=== PATIENT | male | born 1975 | race Caucasian/White ===

== ENCOUNTER 2021-10-31 22:04 | Emergency (ER) | payer OTHER ==
[~2021-10-31] VITALS: Ht 177.8 cm; Wt 91.2 kg
== END 2021-11-01 00:40 | disposition home or self-care (01) ==
LOC: ER 22:04
DX: S61.216A Laceration without foreign body of right little finger without damage to nail, initial encounter (principal); W26.0XXA Contact with knife, initial encounter; Z88.0 Allergy status to penicillin
CPT/HCPCS: 12001; 99282-25